=== PATIENT | female | born 1950 | race Caucasian/White ===

== ENCOUNTER → 2020-10-11 | Outpatient (CLI) | payer MEDICARE | LOC: KOH-I 10:30 | DX: H81.10 Benign paroxysmal vertigo, unspecified ear (principal); R26.9 Unspecified abnormalities of gait and mobility; R26.89 Other abnormalities of gait and mobility | CPT/HCPCS: 70551 ==

== ENCOUNTER → 2020-11-10 | Outpatient (CLI) | payer MEDICARE, OTHER | LOC: LAB 10:53 | DX: R29.6 Repeated falls (principal) | CPT/HCPCS: 36415; 82565; 84520 ==

== ENCOUNTER → 2020-11-24 | Outpatient (CLI) | payer MEDICARE, OTHER | LOC: CT 11-18 08:30 → MRI 11-18 08:30 → CT 07:34 | DX: R29.6 Repeated falls (principal); M50.31 Other cervical disc degeneration, high cervical region; G93.89 Other specified disorders of brain | CPT/HCPCS: 70496; 70498; 70553; 72156; A9577; Q9967 ==

== ENCOUNTER → 2021-03-02 | Outpatient (CLI) | payer MEDICARE, OTHER | LOC: HEART 5 13:52 | DX: R55 Syncope and collapse (principal) ==

== ENCOUNTER → 2021-04-17 | Outpatient (CLI) | payer MEDICARE, OTHER | LOC: HEART 5 03-13 09:00 | DX: R55 Syncope and collapse (principal); I07.1 Rheumatic tricuspid insufficiency | CPT/HCPCS: 93306 ==

== ENCOUNTER → 2021-05-02 | Day surgery (SDC) | payer MEDICARE, OTHER ==
[~2021-05-02] MED LIST: CRESTOR5 MG PO; LEVOTHYROXINE50 MCG PO; LOPRESSOR 25 MG25 MG PO; VENLAFAXINE HC150 MG PO
== END | disposition home or self-care (01) ==
LOC: CATH 07:51
DX: I08.1 Rheumatic disorders of both mitral and tricuspid valves (principal); E78.00 Pure hypercholesterolemia, unspecified; E78.5 Hyperlipidemia, unspecified; E03.9 Hypothyroidism, unspecified; F41.9 Anxiety disorder, unspecified; Z79.899 Other long term (current) drug therapy; Z82.49 Family history of ischemic heart disease and other diseases of the circulatory system; Z83.42 Family history of familial hypercholesterolemia; Z80.3 Family history of malignant neoplasm of breast
CPT/HCPCS: 93005; 93312; 93320; J1200; J2250; J2310; J3010; J7040

== ENCOUNTER → 2021-09-25 | Outpatient (CLI) | payer MEDICARE, OTHER | LOC: LAB 11:25 | DX: J01.00 Acute maxillary sinusitis, unspecified (principal); Z20.822 Contact with and (suspected) exposure to COVID-19 | CPT/HCPCS: U0002 ==

== ENCOUNTER → 2021-11-06 | Outpatient (CLI) | payer MEDICARE, OTHER | LOC: US 10-30 11:00 → MAMO 13:14 | DX: R92.8 Other abnormal and inconclusive findings on diagnostic imaging of breast (principal) | CPT/HCPCS: 76641-LT; 77066; G0279 ==